=== PATIENT | female | born 1985 | race Caucasian/White ===

== ENCOUNTER 2019-01-17 14:31 | Emergency (ER) | payer BC ==
[~2019-01-17] VITALS: Ht 172.7 cm; Wt 64.4 kg
[2019-01-17 14:44] VITALS: Ht 172.7 cm; Wt 64.4 kg
[2019-01-17 16:33] VITALS: BP 122/87
== END 2019-01-17 16:33 | disposition home or self-care (01) ==
LOC: ED 14:31
DX: M54.5 Low back pain (principal); G89.29 Other chronic pain; M51.37 Other intervertebral disc degeneration, lumbosacral region

== ENCOUNTER 2020-07-14 03:28 | Emergency (ER) | payer OTHER ==
[~2020-07-14] VITALS: Ht 172.7 cm; Wt 61.2 kg
[2020-07-14 05:12] VITALS: BP 127/75
== END 2020-07-14 05:10 | disposition home or self-care (01) ==
LOC: ED 03:28
DX: T17.208A Unspecified foreign body in pharynx causing other injury, initial encounter (principal); R09.81 Nasal congestion; J45.909 Unspecified asthma, uncomplicated; G89.29 Other chronic pain; M54.9 Dorsalgia, unspecified; W45.8XXA Other foreign body or object entering through skin, initial encounter; Y93.89 Activity, other specified; Y92.89 Other specified places as the place of occurrence of the external cause; Y99.8 Other external cause status